=== PATIENT | male | born 1995 | race Caucasian/White ===

== ENCOUNTER 2017-10-10 08:07 | Emergency (ER) | payer MEDICAID ==
[~2017-10-10] VITALS: Ht 170.2 cm; Wt 59.8 kg
[2017-10-10] MEDS ORDERED: SODIUM CHLORIDE FLUSH 10ML SYR IVF ONE (08:30)
[2017-10-10] MEDS ORDERED: SODIUM CHLORIDE 0.9% 1,000ML IVBOLUS ONE ×2 (08:30→09:30)
[2017-10-10] MEDS ORDERED: METOCLOPRAMIDE 5 MG/ML, 2ML IVPush ONE (08:30)
[2017-10-10] MEDS ORDERED: FAMOTIDINE 20 MG/2 ML IVP ONE (08:30)
[2017-10-10 08:44] LABS: BASOPHILS # (AUTO) 0.04 x10^3/uL (0-0.1); BASOPHILS % (AUTO) 0 % (0-1); EOSINOPHILS # (AUTO) 0.14 x10^3/uL (0-0.4); EOSINOPHILS % (AUTO) 1 % (1-7); LYMPHOCYTES # (AUTO) 3.17 x10^3/uL (1-3.4); LYMPHOCYTES % (AUTO) 22 % (22-44); MD NO; MEAN CORPUSCULAR HEMOGLOBIN 29.5 pg (27.5-34.5); MEAN CORPUSCULAR HGB CONC 33.2 g/dL (33.2-36.2); MEAN CORPUSCULAR VOLUME 88.6 fL (81-97); MEAN PLATELET VOLUME 8.9 fL (7.4-10.4); MONOCYTES # (AUTO) 0.82 x10^3/uL (0.2-0.8); MONOCYTES % (AUTO) 6 % (2-9); NEUTROPHILS # (AUTO) 10.58 x10^3/uL (1.8-6.8); NEUTROPHILS % (AUTO) 72 % (42-75); PLATELET COUNT 311 x10^3/uL (130-400); RED BLOOD COUNT 5.63 x10^6/uL (4.38-5.82); RED CELL DISTRIBUTION WIDTH 13.8 % (9.4-14.8)
[2017-10-10] MEDS ORDERED: INSU100V8 SQ (08:45)
[2017-10-10] MEDS ORDERED: HUMALOG S S SC (08:45)
[2017-10-10] MEDS ORDERED: doxycycline (08:45)
[2017-10-10] MEDS ORDERED: METOCLOPRAMIDE 5 MG/ML, 2ML ONE (08:48)
[2017-10-10] MEDS ORDERED: FAMOTIDINE 20 MG/2 ML ONE (08:48)
[2017-10-10 08:56] LABS: ALANINE AMINOTRANSFERASE 57 U/L (12-78); ALBUMIN 4.1 g/dL (3.4-5.0); ANION GAP 20 mmol/L (5-15); CALCIUM 9.3 mg/dL (8.5-10.1); CHLORIDE 102 mmol/L (98-107); CREATININE 1.15 mg/dL (0.7-1.3)
[2017-10-10 08:58] LABS: ALKALINE PHOSPHATASE 134 U/L (45-117); BILIRUBIN,TOTAL 0.7 mg/dL (0.2-1.0); TOTAL PROTEIN 8.8 g/dL (6.4-8.2)
[2017-10-10] MEDS ORDERED: SODIUM CHLORIDE 0.9% 1,000 ML IV ONE (09:42)
[2017-10-10] MEDS ORDERED: INSULIN REGULAR 100 UNITS/ML, 3ML VIAL IVPush ONE ×2 (10:00)
[2017-10-10 10:29] LABS: ACETONE, SERUM Large (80mg/dL) mg/dL (Negative)
[2017-10-10 10:30] VITALS: BP 123/51
== END 2017-10-10 10:42 | disposition left against medical advice (07) ==
LOC: ED 09:19 → UNDOADMIN 10:02 → EDIP 10:02 → ED 10:42
DX: E10.10 Type 1 diabetes mellitus with ketoacidosis without coma (principal); Z79.4 Long term (current) use of insulin
CPT/HCPCS: 76700; 80053; 82010; 82800; 82962; 83690; 85025; 93005; 96361; 96374; 96375; 99291; J2765; J7030; S0028